=== PATIENT | female | born 1945 | race Caucasian/White ===

== ENCOUNTER 2017-04-28 18:29 | Emergency (ER) | payer MEDICARE, BC ==
[2017-04-28] MEDS ORDERED: Aspirin 81 MG Tab.Chew PO ONE (18:50)
--- NOTE | 2017-04-28 19:44 | EDM.PDOC ---
ED HPI GENERAL MEDICAL PROBLEM - General Chief Complaint: Neuro Symptoms/Deficits Stated Complaint: STROKE Time Seen by Provider: 04/28/17 18:39 Source of Information: Reports: Patient History Limitations: Reports: No Limitations - History of Present Illness INITIAL COMMENTS - FREE TEXT/NARRATIVE: This patient arrived by EMS with stroke symptoms. At approximately 1745 she began having right-sided extremity weakness and drooping of the right side of the face. EMS was called and they did note the right-sided weakness and the air ambulance was called but would not arrive for at least an hour so she was brought to our facility. A stroke alert was called. The patient denies any prior symptoms. She is a nonsmoker. She does admit that her mother had carotid disease and was a closet smoker Headache Pain Score (Numeric/FACES): 5 - Related Data Allergies Allergy/AdvReac Type Severity Reaction Status Date / Time duloxetine HCl Allergy Abdominal Verified 12/09/15 10:05 [From Cymbalta] Pain oxycodone HCl Allergy Rash Verified 12/09/15 10:05 [From OxyContin] ACETAMINOPHEN-CODEINE Allergy Hypotension Uncoded 12/09/15 10:05 Home Meds: Home Meds Aspirin [Kina Chewable Aspirin] 81 mg PO DAILY 05/19/14 [History] Furosemide [Lasix] 20 mg PO DAILY 05/19/14 [History] Losartan [Cozaar] 100 mg PO DAILY 05/19/14 [History] Omeprazole 20 mg PO DAILY 05/19/14 [History] PARoxetine [Paxil] 40 mg PO DAILY 05/19/14 [History] Potassium Chloride [Klor-Con 10] 10 meq PO DAILY 05/19/14 [History] Pravastatin [Pravachol] 40 mg PO BEDTIME 05/19/14 [History] Calc/D3/Mag/Zn/Mixing Engineer/[place] [Calcium 600 MG Plus Vit D] 1 tab PO BID 12/03/15 [History] Levothyroxine [Synthroid] 100 mcg PO DAILY 12/03/15 [History] Carvedilol [Carvedilol] 6.25 mg PO BID 04/28/17 [History] Past Medical History Cardiovascular History: Reports: High Cholesterol, Hypertension Gastrointestinal History: Reports: Gastritis, Hiatal Hernia NURSES' AIDE History: Reports: Musculoskeletal History: Reports: Osteoarthritis Neurological History: Reports: TIA Endocrine/Metabolic History: Reports: Hypothyroidism, Other (See Below) Other Endocrine/Metabolic History: fibromialgia - Past Surgical History HEENT Surgical History: Reports: Tonsillectomy GI Surgical History: Reports: Cholecystectomy, Colonoscopy Female Surgical History: Reports: Section, Hysterectomy Musculoskeletal Surgical History: Reports: Knee Replacement Social & Family History - Tobacco Use Smoking Status *Q: Never Smoker - Caffeine Use Caffeine Use: Reports: Coffee - Alcohol Use Days Per Week of Alcohol Use: 0 - Recreational Drug Use Recreational Drug Use: No ED ROS GENERAL - Review of Systems Review Of Systems: See Below Constitutional: Reports: Weakness HEENT: Reports: No Symptoms Respiratory: Reports: No Symptoms Cardiovascular: Reports: No Symptoms Endocrine: Reports: No Symptoms GI/Abdominal: Reports: No Symptoms : Reports: No Symptoms Musculoskeletal: Reports: No Symptoms Skin: Reports: No Symptoms Neurological: Reports: Headache, Weakness Psychiatric: Reports: No Symptoms Hematologic/Lymphatic: Reports: No Symptoms ED EXAM, NEURO - Physical Exam Exam: See Below Exam Limited By: No Limitations General Appearance: Alert, Mild Distress, Obese Eye Exam: Bilateral Eye: EOMI, PERRL Throat/Mouth: Normal Inspection, Normal Oropharynx Head Exam: Atraumatic Neck: Normal Inspection. No: Carotid Bruit Respiratory/Chest: Lungs Clear Cardiovascular: Normal Peripheral Pulses, Regular Rate, Rhythm, No Murmur GI/Abdominal: Non-Tender Neurological: Alert, Normal Mood/Affect, Oriented x 3, Other (There is moderate weakness of the right upper and lower extremities. She does have a handgrip but it is weak compared to the left. With difficulty she can lift the right arm and leg. Plantar flexion is present but also is week). No: CN II-XII Intact (There is slight drooping of the right side of the mouth and slight drooping of the right side of the forehead. Otherwise all cranial nerves are normal.) Extremities: Normal Inspection Psychiatric: Normal Affect Skin Exam: Warm, Dry Course - Vital Signs Last Recorded V/S: Last Vital Signs Temp 36.4 C 04/28/17 18:46 Pulse 60 04/28/17 19:49 Resp 9 L 04/28/17 19:49 BP 173/43 H 04/28/17 19:49 Pulse Ox 100 04/28/17 19:49 - Orders/Labs/Meds Orders: Active Orders 24 hr Category Date Time Status EKG Documentation Completion [RC] ASDIRECTED Care 04/28/17 18:44 Active Head wo Cont [CT] Stat Exams 04/28/17 18:42 Taken EKG 12 Lead [EK] Urgent Ther 04/28/17 18:43 Ordered Labs: Laboratory Tests 04/28/17 04/28/17 04/28/17 Range/Units 19:06 19:06 19:06 WBC 7.2 (4.5-11.0) K/uL RBC 5.02 (3.30-5.50) M/uL Hgb 11.6 L (12.0-15.0) g/dL Hct 38.2 (36.0-48.0) % MCV 76 L (80-98) fL MCH 23 L (27-31) pg MCHC 30 L (32-36) % Plt Count 207 (150-400) K/uL Neut % (Auto) 59 (36-66) % Lymph % (Auto) 27 (24-44) % Burnett % (Auto) 11 H (2-6) % Eos % (Auto) 2 (2-4) % Baso % (Auto) 0 (0-1) % PT 10.0 (9.5-12.0) sec INR 0.94 (0.80-1.20) APTT 24.0 L (27.0-36.0) sec Sodium 143 (140-148) mmol/L Potassium 3.8 (3.6-5.2) mmol/L Chloride 108 (100-108) mmol/L Carbon Dioxide 26 (21-32) mmol/L Anion Gap 9.3 (5.0-14.0) mmol/L BUN 22 H (7-18) mg/dL Creatinine 0.9 (0.6-1.0) mg/dL Est Cr Clr Drug Dosing 53.67 mL/min Estimated GFR (MDRD) > 60 (>60) Glucose 97 (74-106) mg/dL Calcium 8.5 (8.5-10.1) mg/dL Total Bilirubin 0.3 (0.2-1.0) mg/dL AST 15 (15-37) U/L ALT 15 (12-78) U/L Alkaline Phosphatase 132 H (46-116) U/L Total Protein 6.2 L (6.4-8.2) g/dL Albumin 3.2 L (3.4-5.0) g/dL Globulin 3.0 (2.3-3.5) g/dL Albumin/Globulin Ratio 1.1 L (1.2-2.2) Meds: Medications Discontinued Medications Generic Name Dose Route Start Last Admin Trade Name Clover PRN Reason Stop Dose Admin Aspirin 324 mg 04/28/17 18:50 04/28/17 18:53 Aspirin PO 04/28/17 18:51 243 mg ONETIME ONE Administration - Radiology Interpretation Free Text/Narrative:: CT scan was reviewed by me and the radiologist reports there is no evidence of hemorrhage or any other intracranial process - Re-Assessments/Exams Free Text/Narrative Re-Assessment/Exam: 04/28/17 19:42 This patient was taken to radiology where a head CT was performed. Once the head CT was reviewed by me the patient received aspirin 324 mg chewed. The patient was reexamined and quickly her symptoms cleared such that at 1940 her arm and leg strength is completely back to normal. There seems to be slight drooping of the right side of the mouth still. Her mental status is normal. We are still awaiting some blood chemistries. She'll be admitted to the hospital for further workup and I will be discussing her with Dr. Rodriguez shortly 04/28/17 19:45 Her EKG shows a normal sinus rhythm and nonspecific T changes inferiorly Free Text/Narrative Re-Assessment/Exam: 04/28/17 20:[address] Rodriguez. He felt that because of her limited capabilities she would be best served by being sent to a stroke center. I spoke with the neurologist at the center in [place] and he is accepted the patient. The patient is agreeable to be transferred. She remained symptom free. Departure - Departure Time of Disposition: 19:44 Disposition: DC/Tfer to Acute Hospital 02 Condition: Fair Clinical Impression: Transient ischemic attack - Discharge Information Referrals: PCP,None [Primary Care Provider] - Forms: ED Department Discharge - My Orders Last 24 Hours: My Active Orders 04/28/17 18:42 Head wo Cont [CT] Stat 04/28/17 18:43 EKG 12 Lead [EK] Urgent 04/28/17 18:44 EKG Documentation Completion [RC] ASDIRECTED - Assessment/Plan Last 24 Hours: My Active Orders 04/28/17 18:42 Head wo Cont [CT] Stat 04/28/17 18:43 EKG 12 Lead [EK] Urgent 04/28/17 18:44 EKG Documentation Completion [RC] ASDIRECTED
[2017-04-28 22:36] VITALS: BP 198/118
== END 2017-04-28 22:40 ==
LOC: JP.ED 18:29
DX: G45.9 Transient cerebral ischemic attack, unspecified (principal); E78.00 Pure hypercholesterolemia, unspecified; I10 Essential (primary) hypertension; M19.90 Unspecified osteoarthritis, unspecified site; E03.9 Hypothyroidism, unspecified; Z98.890 Other specified postprocedural states; Z90.710 Acquired absence of both cervix and uterus; Z96.659 Presence of unspecified artificial knee joint; Z88.5 Allergy status to narcotic agent; Z88.8 Allergy status to other drugs, medicaments and biological substances; Z79.82 Long term (current) use of aspirin; Z79.899 Other long term (current) drug therapy
CPT/HCPCS: 36415; 70450; 80053; 85025; 85610; 85730; 93005; 99285; A9270; 93010

== ENCOUNTER → 2019-03-12 | Outpatient (CLI) | payer MEDICARE ==
--- NOTE | 2019-03-13 09:56 | CRLMY ---
INDICATION: Bilateral Screening mammogram, Asymptomatic Female age 73 been obtained using full-field digital technique. These mammographic images were interpreted with the benefit of computer-aided detection. COMPARISON FILM: 12/28/17, 12/27/16, 12/06/15, 11/11/14. FINDINGS: There are scattered fibroglandular densities. There are no masses or calcifications that are suspicious for malignancy. IMPRESSION: There is no radiographic evidence for malignancy. ASSESSMENT: BI-RADS Category 2: Benign RECOMMENDATION: Routine screening mammogram in 1 year. A lay language report of this examination will be provided to the patient. Breast Tomosynthesis was used in this interpretation. [email or web address] Dictated by: Iglesia Chamberlain MD @ 03/13/2019 09:54:50 (Electronically Signed)
== END ==
LOC: JP.MAM 10:39
PROVIDERS: ATTEND Family Medicine
DX: Z12.31 Encounter for screening mammogram for malignant neoplasm of breast (principal)
CPT/HCPCS: 77063; 77067

== ENCOUNTER 2021-03-31 06:45 | Day surgery (SDC) | payer MEDICARE ==
[2021-03-31] MEDS ORDERED: fentaNYL 100 MCG/2 ML SDV ONE (07:20)
[2021-03-31] MEDS ORDERED: Propofol 200 MG/20 ML SDV ONE (07:20)
[2021-03-31] MEDS ORDERED: Sodium Chloride 0.9% 1,000 ML IV SCH (08:00)
[2021-03-31 09:55] VITALS: BP 135/80; PULSE 55
--- NOTE | 2021-03-31 14:52 | OR ---
DATE OF PROCEDURE: 03/31/2021 SURGEON: Emanuel Espinal MD PROCEDURE: Esophagogastroduodenoscopy. FINDINGS: 1. Mild inflammation at GE junction concerning for reflux disease (biopsied in all 4 quadrants using cold biopsy forceps). 2. Approximately 3 cm hiatal hernia. COMPLICATIONS: None. TOP LIFT SCOURER: None. ANESTHESIA: MAC. PREOPERATIVE DIAGNOSIS: Concern for esophageal bleeding per the patient's report. POSTOPERATIVE DIAGNOSIS: Concern for esophageal bleeding per the patient's report. RISKS: Risks, benefits, alternatives, and limitations including, but not limited to infection, bleeding, perforation, false positives and false negatives were explained to the patient who wished to proceed. PROCEDURE IN DETAIL: The patient was placed in left lateral decubitus position. The EGD scope was introduced and advanced atraumatically to the second part of the duodenum. No evidence of duodenitis or ulceration. Within the stomach itself, there was no gastritis or ulceration. No abnormalities on retroflexion. GE junction showed mild inflammation concerning for reflux disease. This was consistent with a small tongue-like protrusion, less than 1 cm at the Z-line. This was biopsied along with all the other quadrants using cold biopsy forceps. The air was removed from the stomach. The patient was noted to have a 3 cm hiatal hernia. The remaining esophagus was normal. The patient tolerated the procedure well. Emanuel Espinal MD /[id number]
== END 2021-03-31 09:59 | disposition home or self-care (01) ==
LOC: JP.SDS 06:45
PROVIDERS: ATTEND Surgery
DX: K22.8 Other specified diseases of esophagus (principal); K44.9 Diaphragmatic hernia without obstruction or gangrene; K20.90 Esophagitis, unspecified without bleeding; I11.0 Hypertensive heart disease with heart failure; I50.9 Heart failure, unspecified; I25.10 Atherosclerotic heart disease of native coronary artery without angina pectoris; E78.5 Hyperlipidemia, unspecified; E66.9 Obesity, unspecified; Z68.38 Body mass index [BMI] 38.0-38.9, adult
CPT/HCPCS: 43239; J2704; J3010; J7030; 88305

== ENCOUNTER 2021-08-11 07:21 | Day surgery (SDC) | payer MEDICARE ==
[~2021-08-11 07:21] MED LIST: Propofol 200 MG/20 ML SDV ONE; fentaNYL 100 MCG/2 ML SDV ONE
[2021-08-11] MEDS ORDERED: Sodium Chloride 0.9% 1,000 ML IV SCH (09:30)
[2021-08-11 10:17] VITALS: BP 143/83; PULSE 103
--- NOTE | 2021-08-11 10:33 | OR ---
DATE OF PROCEDURE: 08/11/2021 SURGEON: Emanuel Espinal MD PROCEDURE: Colonoscopy. FINDINGS: Descending colon polyp of approximately 5 mm, completely removed using cold biopsy forceps. COMPLICATION: None. DELIVERER FOOD: None. ANESTHESIA: MAC. PREOPERATIVE DIAGNOSIS: Screening colonoscopy. POSTOPERATIVE DIAGNOSIS: Screening colonoscopy. RISKS: Risks, benefits, alternatives, and limitations including, but not limited to infection, bleeding, perforation, false positives, false negatives were explained to the patient who wished to proceed. PROCEDURE IN DETAIL: The patient was placed in left lateral decubitus position. Digital rectal exam was performed without abnormality. Scope was introduced and advanced atraumatically to the ileocecal valve. A photo was taken of the appendiceal orifice. Scope was brought back to the ascending, transverse, descending colon, and retroflexed. No evidence of old or new blood. No masses. The aforementioned polyp was identified and completely removed. Greater than 8 minutes spent removing the scope. Prep was acceptable, approximately 90% of the luminal surface could be seen. The patient tolerated procedure well. Emanuel Espinal MD /[id number]
== END 2021-08-11 10:32 | disposition home or self-care (01) ==
LOC: JP.SDS 07:21
PROVIDERS: ATTEND Surgery
DX: Z12.11 Encounter for screening for malignant neoplasm of colon (principal); D12.4 Benign neoplasm of descending colon; I10 Essential (primary) hypertension; E03.9 Hypothyroidism, unspecified; Z86.73 Personal history of transient ischemic attack (TIA), and cerebral infarction without residual deficits
CPT/HCPCS: 45380; J2704; J3010; J7030

== ENCOUNTER 2022-10-02 07:33 | Day surgery (SDC) | payer MEDICARE ==
[~2022-10-02 07:33] MED LIST changes: +Lactated Ringers 1,000 ML IV SCH; -fentaNYL 100 MCG/2 ML SDV ONE
[2022-10-02 10:11] VITALS: BP 143/68; PULSE 74
== END 2022-10-02 10:11 | disposition home or self-care (01) ==
LOC: JP.SDS 07:33
PROVIDERS: ATTEND Student in an Organized Health Care Education/Training Program
DX: K29.50 Unspecified chronic gastritis without bleeding (principal); K31.7 Polyp of stomach and duodenum; K20.90 Esophagitis, unspecified without bleeding; K44.9 Diaphragmatic hernia without obstruction or gangrene; I11.0 Hypertensive heart disease with heart failure; I50.9 Heart failure, unspecified; F41.9 Anxiety disorder, unspecified; F32.A Depression, unspecified; G45.9 Transient cerebral ischemic attack, unspecified; R73.03 Prediabetes; E66.9 Obesity, unspecified; Z88.5 Allergy status to narcotic agent; Z88.8 Allergy status to other drugs, medicaments and biological substances; Z88.6 Allergy status to analgesic agent; Z88.2 Allergy status to sulfonamides; Z79.899 Other long term (current) drug therapy
CPT/HCPCS: 43239; 88305; J2704; J7120